=== PATIENT | male | born 1960 | race Caucasian/White ===

== ENCOUNTER → 2016-05-08 | Outpatient (CLI) | payer OTHER ==
[~2016-05-08] MED LIST: GASTROGRAFIN SOLUTION 30ML (Q9963) As Ordered ONE; ISOVUE-370 76% 100ML VIAL (Q9967) As Ordered ONE
--- NOTE | 2016-05-08 13:40 | REP ---
CT ABDOMEN AND PELVIS WITH AND WITHOUT IV CONTRAST: TECHNIQUE: Axial noncontrast images through the abdomen followed by contrast-enhanced images through the abdomen and pelvis using 100 mL Isovue 370 intravenous contrast material, with coronal and sagittal reformations. Visualized lung bases are clear. The liver, spleen, adrenals, pancreas, and kidneys are normal in appearance with no mass. There is no hydronephrosis. No renal or ureteral calculus is seen. There is no abdominal aorta aneurysm. There is no adenopathy. There is no free air or free fluid. There is no bowel wall thickening. The appendix is normal. There is no pelvic mass. Urinary bladder is not distended and not well evaluated. I see no anterior abdominal wall defect. There are diffuse degenerative changes of the spine. There appears to be spondylolysis of L5 with anterior grade 1 spondylolisthesis of L5 on S1. IMPRESSION: No evidence of abdominal or pelvis mass or adenopathy. Signed by Josiah Taylor MD 05/09/2016 06:27 P
== END ==
LOC: M RAD 11:09
PROVIDERS: ATTEND Surgery
DX: C44.99 Other specified malignant neoplasm of skin, unspecified (principal)

== ENCOUNTER → 2016-07-21 | Outpatient (CLI) | payer OTHER ==
--- NOTE | 2016-07-21 13:08 | REP ---
MR LUMBAR SPINE WITHOUT CONTRAST: HISTORY: Back pain. Decreased signal intensity on T2-weighted images is present in the L1-2, L2-3, and L5-S1 intervertebral discs. The discs are decreased in height. These findings are consistent with disc degeneration. There is no disc bulge or herniation at the L1-2 level. The L1 nerves exit the neural foramina without compression. A diffuse disc bulge is present at the L2-3 level. There is minimal compression of the thecal sac. There is hypertrophy of the posterior articulating facets. The L2 nerves exit the neural foramina without compression. A diffuse disc bulge is present at the L3-4 level. There is minimal compression of the thecal sac. There is hypertrophy of the posterior articulating facets. The L3 nerves exit the neural foramina without compression. A diffuse disc bulge is present at the L4-5 level. There is no thecal sac compression. There is hypertrophy of the posterior articulating facets. The L4 nerves exit the neural foramina without compression. A diffuse disc bulge is present at the L5-S1 level. There is no thecal sac compression. There is hypertrophy of the posterior articulating facets. There are 11 mm of grade 2 spondylolisthesis of L5 on S1. There appear to be L5 pars defects. There is compression of the L5 nerves in the neural foramina. The conus medullaris is normal in appearance terminating at the level of the L1-2 intervertebral disc. Increased signal intensity on T2-weighted images is present in the endplates of the L5 and S1 vertebral bodies. This represents degenerative change. IMPRESSION: 1. Diffuse disc bulges at the L2-3 and L3-4 levels with minimal thecal sac compression. 2. Diffuse disc bulge at the L4-5 level without thecal sac or nerve compression. 3. Diffuse disc bulge at the L5-S1 level without thecal sac compression. There is grade 2 spondylolisthesis of L5 on S1. There appear to be L5 pars defects. There is compression of the L5 nerves in the neural foramina. Signed by Steven Eddy MD 07/21/2016 01:18 P
== END ==
LOC: M PLARAD 11:37
PROVIDERS: ATTEND Family Medicine
DX: M51.36 Other intervertebral disc degeneration, lumbar region (principal); M43.16 Spondylolisthesis, lumbar region

== ENCOUNTER → 2017-02-25 | Outpatient (CLI) | payer OTHER ==
--- NOTE | 2017-02-26 07:12 | REP ---
CONTRAST ENHANCED CT OF THE ABDOMEN AND PELVIS: CLINICAL: History of carcinoma for re-evaluation and restaging. TECHNIQUE: Axial contrast enhanced images from the lung bases to the pubic symphysis using oral (per protocol) and 100 mL Isovue 370 intravenous contrast material with precontrast and delayed images of the abdomen as well as coronal and sagittal reformations. COMPARISON: 05/08/2016 FINDINGS: The visualized lung bases demonstrate a 13 mm soft tissue lesion with mild spiculation in the posterior left upper lobe inseparable from the fissure (image 7). The visualized portions of the heart and pericardium are normal. Liver, spleen, pancreas, gallbladder, bilateral adrenal glands and kidneys are normal. Lymph nodes in the daniel hepatis measure up to 3.8 x 2.2 cm. The enteric system is without obstruction or acute inflammatory process and a normal terminal ileum and appendix are identified in the right lower quadrant. The pelvis demonstrates normal bladder and prostate/seminal vesicles. The sigmoid colon is unremarkable. No pelvic fluid or ascites. No retroperitoneal adenopathy. Abdominal aorta and vasculature appears normal. Musculoskeletal structures demonstrate degenerative changes predominantly involving the lower lumbar spine and pelvis including chronic spondylolysis/spondylolisthesis at the L5-S1 level and bilateral sacroiliitis. Small left hydrocele suggested. IMPRESSION: 1. Lymph nodes in the adniel hepatis are otherwise nonspecific and measure up to 3.8 x 2.2 cm. 2. Chronic degenerative changes of the lumbosacral spine and pelvis. 3. 13 mm nodule in the left lung base. 4. No further acute abdominopelvic pathology appreciated. Signed by Nathanael Medellin MD 02/27/2017 08:58 A
--- NOTE | 2017-02-26 07:17 | REP ---
CONTRAST ENHANCED CT OF THE CHEST: CLINICAL: History of carcinoma. TECHNIQUE: Axial contrast enhanced images from the thoracic inlet to the upper abdomen using 100 mL Isovue 370 intravenous contrast material with coronal and sagittal reformations. COMPARISON: 01/23/2015. FINDINGS: There is a new 13 mm soft tissue lesion in the right upper lobe (image 43) as well as a similar 13 mm lesion in the left upper lobe inseparable from the major fissure (image 57). Few scattered smaller noncalcified nodules varying in size up to 2 mm are identified and nonspecific. Hilar lymph nodes measure up to approximately 12 mm short axis diameter. No further pulmonary parenchymal consolidation, effusion or pneumothorax. Tracheobronchial tree is patent. The mediastinum demonstrates normal thoracic aorta and heart/pericardium. Mild atherosclerotic changes of the aorta and coronary arteries noted. Surrounding musculoskeletal structures are intact and without focal osseous abnormality. Limited evaluation of the upper abdomen demonstrates normal bilateral adrenal glands. IMPRESSION: 1. Two 13 mm noncalcified nodular densities as described above along with nonspecific hilar lymph nodes. Findings represent new pathology compared to 2015. Metastatic disease cannot be excluded. PET/CT and/or biopsy may be considered. Signed by Nathanael Medellin MD 02/27/2017 08:58 A
--- NOTE | 2017-02-26 08:23 | REP ---
NONVASCULAR EXTREMITY ULTRASOUND: CLINICAL: History of carcinoma with palpable mass. TECHNIQUE: Real-time time moya scale and color evaluation using linear high frequency transducer. FINDINGS: Directed ultrasound examination at the point of maximal tenderness along the medial calf demonstrates moderate subcutaneous edema along with a somewhat ovoid hypoechoic focal area measuring 7 x 5 x 6 mm without vascularity and of uncertain etiology. IMPRESSION: Directed ultrasound examination demonstrates subcutaneous edema and small ovoid hypoechoic area which is nonspecific and avascular. Consider followup physical examination and repeat ultrasound if necessary. Signed by Nathanael Medellin MD 02/27/2017 08:00 A
== END ==
LOC: M RAD 08:52
PROVIDERS: ATTEND Internal Medicine Medical Oncology
DX: R22.41 Localized swelling, mass and lump, right lower limb (principal); Z85.828 Personal history of other malignant neoplasm of skin; M51.37 Other intervertebral disc degeneration, lumbosacral region; R91.8 Other nonspecific abnormal finding of lung field
CPT/HCPCS: 71260; 74178; 76882; Q9963; Q9967

== ENCOUNTER → 2017-04-14 | Outpatient (REF) | payer OTHER ==
[2017-04-14 17:37] LABS: INR 1.05; PARTIAL THROMBOPLASTIN TIME 28.5 SECONDS (26.8-37.9); PROTHROMBIN TIME 13.8 SECONDS (12.4-14.5)
== END ==
LOC: M LAB REF 16:44
DX: C44.709 Unspecified malignant neoplasm of skin of left lower limb, including hip (principal)

== ENCOUNTER → 2017-04-21 | Outpatient (CLI) | payer OTHER | LOC: M PLARAD 11:48 | DX: R91.1 Solitary pulmonary nodule (principal) | CPT/HCPCS: 78816 ==

== ENCOUNTER → 2017-04-22 | Outpatient (CLI) | payer OTHER ==
[~2017-04-22] MED LIST changes: -GASTROGRAFIN SOLUTION 30ML (Q9963) As Ordered ONE; -ISOVUE-370 76% 100ML VIAL (Q9967) As Ordered ONE; +LIDOCAINE 1% MDV 20ML VIAL As Ordered
== END ==
LOC: M RADPRO 07:46
DX: R91.8 Other nonspecific abnormal finding of lung field (principal); Z88.2 Allergy status to sulfonamides; Z79.82 Long term (current) use of aspirin; Z79.899 Other long term (current) drug therapy
CPT/HCPCS: 32405

== ENCOUNTER → 2017-05-28 | Outpatient (CLI) | payer OTHER | LOC: M RAD 09:45 | DX: R91.8 Other nonspecific abnormal finding of lung field (principal) | CPT/HCPCS: 71250 ==

== ENCOUNTER → 2017-06-19 | Outpatient (CLI) | payer OTHER | LOC: M SLEEP 19:31 | DX: G47.33 Obstructive sleep apnea (adult) (pediatric) (principal) | CPT/HCPCS: 95811 ==

== ENCOUNTER → 2017-07-31 | Outpatient (CLI) | payer MEDICARE, OTHER | LOC: M SLEEP 19:52 | DX: G47.33 Obstructive sleep apnea (adult) (pediatric) (principal) | CPT/HCPCS: 95811 ==

== ENCOUNTER → 2017-10-28 | Outpatient (CLI) | payer MEDICARE, OTHER | LOC: M SMT 10:35 | DX: R06.00 Dyspnea, unspecified (principal) | CPT/HCPCS: 71046 ==

== ENCOUNTER → 2017-11-25 | Outpatient (CLI) | payer MEDICARE, MEDICAID | LOC: M RAD 09:15 | DX: R91.8 Other nonspecific abnormal finding of lung field (principal) | CPT/HCPCS: 71250 ==

== ENCOUNTER → 2018-11-30 | Outpatient (CLI) | payer MEDICAID, MEDICARE ==
--- NOTE | 2018-11-30 11:11 | REP ---
CT CHEST WITHOUT CONTRAST: HISTORY: Other nonspecific abnormal finding of the lung field. The patient gives a history of porocarcinoma. Comparison CT studies are reviewed, the most recent of these is from November 25, 2017. The most remote is from January 23, 2015. CT FINDINGS: Today's CT study demonstrates numerous noncalcified pulmonary nodules scattered in the mid and lower lung gonzalez. The largest of the new nodules is in the left upper lobe measuring 11 mm. There are multiple tiny new nodules. A nodule previous identified in the right upper lobe has increased from 11-13 mm today. A lingular pleural-based nodule appears a little larger although its diameter has only increased from 13 to 14 mm. There is no evidence of hilar or mediastinal mass or adenopathy. No extrathoracic mass or adenopathy is seen. No bony destructive lesion is appreciated. There is mild vascular calcification. Fairly exuberant osteophyte formation is seen in the thoracic spine. IMPRESSION: There are numerous noncalcified pulmonary nodules visible today, increased in size and number since the prior study of November 25, 2017. Electronically Signed by Usman Torres MD 11/30/2018 01:03 P
== END ==
LOC: M RAD 08:31
PROVIDERS: ATTEND Internal Medicine Pulmonary Disease
DX: R91.8 Other nonspecific abnormal finding of lung field (principal)

== ENCOUNTER 2018-12-20 09:38 | Day surgery (SDC) | payer MEDICARE ==
[~2018-12-20] VITALS: Ht 172.7 cm; Wt 167.4 kg
[~2018-12-20 09:38] MED LIST changes: +ASPI81TA85 PO; +BUPIVACAINE HCL 0.25% 10 ML VIAL As Ordered ONE; +GLIM4TAB PO; -LIDOCAINE 1% MDV 20ML VIAL As Ordered; +LIDOCAINE 1% MDV 20ML VIAL SQ PRN; +LISI-542 PO; +LR 1,000 ML IV ONE; +METF500T13 PO; +MIDAZOLAM INJ 2 MG/2 ML VIAL (J2250) As Ordered ONE; +SIMV10TA2 PO; +fentaNYL 100 MCG/2 ML INJECTION (J3010) As Ordered ONE
[2018-12-20] MEDS ORDERED: PROPOFOL 200 MG/20 ML VIAL As Ordered ONE (09:58)
[2018-12-20] MEDS ORDERED: ROCURONIUM BROMIDE 50 MG/5 ML VIAL As Ordered ONE (09:59)
[2018-12-20] MEDS ORDERED: LIDOCAINE 2% INJ 100 MG/5 ML SDV (FOR ANES.) As Ordered ONE (09:59)
[2018-12-20] MEDS ORDERED: dexameTHASONE 4 MG/ML 1ML VIAL (J1100) As Ordered ONE (10:01)
[2018-12-20] MEDS ORDERED: ONDANSETRON 4MG/2ML VIAL (J2405) As Ordered ONE (10:01)
[2018-12-20] MEDS ORDERED: fentaNYL 100 MCG/2 ML INJECTION (J3010) As Ordered ONE (10:04)
[2018-12-20] MEDS ORDERED: MIDAZOLAM INJ 2 MG/2 ML VIAL (J2250) As Ordered ONE (10:04)
[2018-12-20] MEDS ORDERED: HumaLOG INSULIN (NovoLOG) PER UNIT As Ordered ONE (10:54)
[2018-12-20] MEDS ORDERED: CETACAINE SPRAY 5GM As Ordered ONE (11:04)
[2018-12-20] MEDS ORDERED: HumuLIN R (REGULAR) INSULIN (NovoLIN R) **100U/ML** PER UNIT SC ONE (11:30)
[2018-12-20] MEDS ORDERED: SUGAMMADEX SODIUM 500 MG/5 ML VIAL (BRIDION) As Ordered ONE (11:59)
[2018-12-20] MEDS ORDERED: HumaLOG INSULIN (NovoLOG) PER UNIT SC ONE (12:00)
[2018-12-20] MEDS ORDERED: PHENYLephrine HCL 500 MCG/5 ML (100MCG/ML) SYRINGE (J2370) As Ordered ONE (12:01)
[2018-12-20] MEDS ORDERED: ePHEDrine SULFATE 25 MG/5 ML(5MG/ML) SYRINGE As Ordered ONE (12:01)
[2018-12-20] MEDS ORDERED: DESFLURANE 240 ML INHALANT As Ordered ONE (12:36)
[2018-12-20] MEDS ORDERED: PERCOCET 5MG/325MG TAB PO PRN (13:00)
[2018-12-20] MEDS ORDERED: ONDANSETRON 4MG/2ML VIAL (J2405) IV PRN (13:00)
[2018-12-20] MEDS ORDERED: LR 1,000 ML IV SCH (13:00)
[2018-12-20] MEDS ORDERED: fentaNYL 100 MCG/2 ML INJECTION (J3010) IV PRN (13:00)
[2018-12-20] MEDS ORDERED: MEPERIDINE INJ 25 MG/ML VIAL (J2175) IV PRN (13:00)
[2018-12-20] MEDS ORDERED: METOCLOPRAMIDE INJ 10MG/2ML VIAL (J2765) IV PRN (13:00)
--- NOTE | 2018-12-20 13:00 | RO ---
DATE OF PROCEDURE: 12/20/2018 PREOPERATIVE DIAGNOSIS: Abnormal chest CT, multiple pulmonary nodules. POSTOPERATIVE DIAGNOSIS: Abnormal chest CT, multiple pulmonary nodules. FINDINGS: Of mucus in the airway. PROCEDURE: Bronchoscopy with electromagnetic navigation procedures. SURGEON: Rei Simon DO BALER OPERATOR: None SPECIMENS OBTAINED: 1. Cytoneedle brush left upper lobe. 2. Transbronchial biopsy left upper lobe. 3. Fine-needle aspiration (FNA) left upper lobe. ANESTHESIA: General. No observed complications. ESTIMATED BLOOD LOSS: Less than 5 mL, none replaced. DESCRIPTION OF PROCEDURE: After informed consent was reviewed with the patient in the preoperative area, he was brought back to operating room (OR) #8, which is a premapped room. General anesthesia was initiated with an 8.5 endotracheal tube. The case was then handed over to me. Time-out was performed with two patient identifiers identifying correct site, correct position, along with correlating the name and date of of the patient with the navigation CT. Cetacaine spray was then used to anesthetize the airway, provide lubrication for the one T190 scope which was then advanced into the airway. Trachea was midline. Lara was sharp. There was minimal amounts of mucus along the left lateral wall, was suctioned easily. Right and left mainstem bronchus was normal. Right bronchus (RB) 1 through 10 was normal without endobronchial lesions. Normal anatomic variation. Then, left bronchus (LB) 1 through 10 was inspected with normal endobronchial anatomy, minimal amounts of mucus. Bronchoscope was then retracted into the endotracheal tube. Automatic registration was then performed. Surprisingly, during the mapping process, it appeared that it was closer to the anterior left upper lobe anterior segment rather than the lingular segment, as one would suspect. I navigated through both of these areas and easily approached the lesion in the left upper lobe with a low anterior segment approach with in 1 cm. The navigatin was then correlated with fluoroscopy and the guide was removed. Biopsies were performed under fluoroscopy, first cytoneedle brush, then followed by transbronchial forceps biopsies, then followed by [facility]Cut FNA. After adequate sampling, airways were suctioned. Bronchoscope was removed, and the case was handed over to anesthesia. Patient was extubated and in recovery. There were no observed complications. TED
[2018-12-20 13:06] VITALS: BP 135/81
--- NOTE | 2018-12-20 14:08 | REP ---
REASON: Postoperative. COMPARISON: 10/28/2017 the latest prior. The technique utilized in obtaining the radiograph has magnified the cardiac silhouette and accentuated the interstitial markings. There is a curvilinear radiodensity seen which is vertically oriented in the right side of the neck possibly representing a internal jugular central venous catheter the tip of which appears to be in the right brachiocephalic vein region. This represents a change from the prior exam. The lungs are clear, essentially unchanged. The cardiomediastinal silhouette is unchanged. The osseous structures are stable and intact. IMPRESSION: No evidence of acute disease. Findings as described above. Electronically Signed by Galileo Reno DO 12/20/2018 02:39 P
== END 2018-12-20 13:28 | disposition home or self-care (01) ==
LOC: M SDC 09:38
PROVIDERS: ATTEND Internal Medicine Pulmonary Disease
DX: R91.8 Other nonspecific abnormal finding of lung field (principal); G47.33 Obstructive sleep apnea (adult) (pediatric); I10 Essential (primary) hypertension; E11.9 Type 2 diabetes mellitus without complications; E66.9 Obesity, unspecified; F17.220 Nicotine dependence, chewing tobacco, uncomplicated; Z79.84 Long term (current) use of oral hypoglycemic drugs; Z79.82 Long term (current) use of aspirin; Z79.899 Other long term (current) drug therapy
CPT/HCPCS: 31623; 31627; 31628; 31629; 71045; 76000; 88104; 88173; 88305; J1100; J2250; J2370; J2405; J3010

== ENCOUNTER → 2019-04-11 | Outpatient (CLI) | payer MEDICARE, MEDICAID ==
[~2019-04-11] MED LIST changes: -BUPIVACAINE HCL 0.25% 10 ML VIAL As Ordered ONE; +GLIM2TAB4 PO; -GLIM4TAB PO; +GLIM4TAB5 PO; +LASI20TA3 PO; -LIDOCAINE 1% MDV 20ML VIAL SQ PRN; -LR 1,000 ML IV ONE; +METF-839 PO; -MIDAZOLAM INJ 2 MG/2 ML VIAL (J2250) As Ordered ONE; -SIMV10TA2 PO; +SIMV10TA21 PO; -fentaNYL 100 MCG/2 ML INJECTION (J3010) As Ordered ONE
--- NOTE | 2019-04-12 08:48 | REP ---
BILATERAL ELBOW SERIES: EIGHT VIEWS. History: Polyarthralgia. Findings: RIGHT ELBOW : Four views of the right elbow demonstrate overall normal mineralization. There is moderate osteoarthritic spurring of the radiocapitellar and the ulnar trochlear articulations. There is evidence of some chondrocalcinosis. There is no significant joint effusion evident. No erosive changes seen. Impression: Moderate osteoarthritic spurring at the right elbow. Findings: LEFT ELBOW: Four views of the left elbow demonstrate a supracondylar exostosis projecting anteriorly and medially from the distal humerus. There is mild to moderate olecranon process spurring. Moderate coronoid and olecranon process articular spurring is noted as well. There is some calcification adjacent to the lateral epicondyle. No erosive changes seen. No evidence of joint effusion. Impression: Supracondylar spur. Moderate osteoarthritic spurring and tendon insertion site spurring on the olecranon. Electronically Signed by Usman Torres MD 04/12/2019 09:55 A
--- NOTE | 2019-04-12 08:49 | REP ---
Bilateral shoulder series: Six views. History: Polyarthralgia. Left shoulder findings: Three views of the left shoulder demonstrate osteoarthritic hypertrophy at the AC joint. The AC and glenohumeral articulations are normally aligned. Periarticular soft tissues are unremarkable. No erosive changes are seen. Impression: AC joint osteoarthritic changes. Right shoulder findings: There is narrowing and spurring and hypertrophy at the AC joint on the right. The glenohumeral and acromioclavicular joints are normally aligned. Minimal spurring is seen at the greater tuberosity of the right proximal humerus. No erosive changes are seen. Mineralization pattern is normal. Impression: AC joint osteoarthritis. Mild spurring at the greater tuberosity. Electronically Signed by Usman Torres MD 04/12/2019 09:55 A
--- NOTE | 2019-04-12 08:54 | REP ---
Bilateral knee series: 11 views. History: Polyarthralgia. Right knee findings: Five views of the right knee demonstrate mild osteoarthritic spurring and joint space narrowing in the medial tibiofemoral compartment of the knee. There is patellofemoral spurring superiorly and inferiorly. Some lateral spurring is seen. There is nonarticular spurring of the patella at the quadriceps tendon insertion and the patellar tendon insertion. No erosive changes seen. Impression: Medial and patellofemoral compartment osteoarthritis. Nonarticular spurring at the quadriceps tendon and patellar tendon insertions. Left knee findings: There is minimal joint space narrowing in the medial compartment. There is mild patellar articular spurring. There is quadriceps tendon insertion site spurring on the upper pole of the patella. [place]ena view on the left shows lateral arthritic patellar spurring as well. Impression: Patellofemoral and medial compartment osteoarthritic changes. Quadriceps tendon insertion site spurring suggest tendonitis. Electronically Signed by Usman Torres MD 04/12/2019 09:55 A
== END ==
LOC: M LAB 15:29
PROVIDERS: ATTEND Internal Medicine
DX: M19.021 Primary osteoarthritis, right elbow (principal); M19.022 Primary osteoarthritis, left elbow; M17.0 Bilateral primary osteoarthritis of knee; M19.011 Primary osteoarthritis, right shoulder; M19.012 Primary osteoarthritis, left shoulder; M25.50 Pain in unspecified joint
CPT/HCPCS: 36415; 73030; 73080; 73564; 80053; 81374; 82550; 84550; 85025; 85652; 86140; 86200; 86431; 86617; G0463

== ENCOUNTER → 2019-04-11 | Outpatient (REF) | payer MEDICARE, MEDICAID ==
[2019-04-11 17:41] LABS: BASO % 0.2 % (0.0-1.0); EOS # 0.2 10^3/uL (0.0-0.5); EOS % 2.3 % (0.0-3.0); HEMATOCRIT 47.2 % (42.0-52.0); HEMOGLOBIN 16.2 g/dl (13.5-17.5); LYMPH # 2.1 10^3/uL (1.5-5.0); LYMPH % 21.6 % (24.0-44.0); MEAN CORPUSCULAR HEMOGLOBIN 29.8 pg (27.0-33.0); MEAN CORPUSCULAR HGB CONC 34.3 g/dl (32.0-36.5); MEAN CORPUSCULAR VOLUME 86.9 fl (80.0-96.0); MONO # 0.7 10^3/uL (0.0-0.8); MONO % 7.6 % (0.0-5.0); NEUTROPHILS # 6.5 10^3/uL (1.5-8.5); NEUTROPHILS % 67.4 % (36.0-66.0); PLATELET COUNT, AUTOMATED 266 10^3/uL (150-450); RED BLOOD COUNT 5.43 10^6/uL (4.30-6.10); WHITE BLOOD COUNT 9.7 10^3/uL (4.0-10.0)
[2019-04-11 18:04] LABS: ALBUMIN 3.7 GM/DL (3.2-5.2); ALT/SGPT 20 U/L (12-78); BILIRUBIN,TOTAL 0.8 MG/DL (0.2-1.0); BLOOD UREA NITROGEN 13 MG/DL (7-18); C REACTIVE PROTEIN QUANTITATIV 1.37 MG/DL (0.00-0.30); CALCIUM LEVEL 9.4 MG/DL (8.5-10.1); CARBON DIOXIDE LEVEL 27 MEQ/L (21-32); CHLORIDE LEVEL 103 MEQ/L (98-107); CPK CREATINE PHOSPHOKINASE 47 U/L (39-308); CREATININE FOR GFR 0.85 MG/DL (0.70-1.30); GLOMERULAR FILTRATION RATE > 60.0 (>56); GLUCOSE, FASTING 178 MG/DL (70-100); POTASSIUM SERUM 3.9 MEQ/L (3.5-5.1); RHEUMATOID FACTOR QUANT < 10.0 IU/ML (<15.0); SODIUM LEVEL 138 MEQ/L (136-145); TOTAL PROTEIN 7.2 GM/DL (6.4-8.2); URIC ACID 5.6 MG/DL (3.5-7.2)
[2019-04-11 18:27] LABS: ERYTHROCYTE SEDIMENTATION RATE 9 mm/hr (0-20)
== END ==
LOC: M SFHCRHEU 15:08
PROVIDERS: ATTEND Internal Medicine
DX: M25.50 Pain in unspecified joint (principal); R25.2 Cramp and spasm

== ENCOUNTER → 2019-04-18 | Outpatient (CLI) | payer MEDICARE, MEDICAID ==
--- NOTE | 2019-04-20 08:35 | REP ---
CT CHEST WITHOUT IV CONTRAST: CT chest performed without IV contrast and compared to a prior study of 11/30/2018. Sagittal and coronal reconstruction images are performed. There are again several bilateral pulmonary nodules present. Most are subcentimeter in size. The largest on the right is in the upper lobe along the minor fissure and measures 1.2 cm in diameter. An oval nodule in the left lower lobe has a maximum diameter of 1.5 cm and is unchanged. Just inferior to that level in the left upper lobe, there is a somewhat irregular nodule 1.6 cm in maximum diameter with small central air density indicting slight cavitation. This is also unchanged. A previously noted nodule in the left upper lobe is no longer present and has resolved, previously seen on image 48. That nodule demonstrated irregular margins and measured 1 cm in diameter. No new nodules are seen. Thoracic aorta demonstrates mild atherosclerotic calcification without aneurysm. No mediastinal adenopathy is seen. The heart is not enlarged. There is no pleural or pericardial effusion. Incidental note is made of mild bilateral gynecomastia. There are moderate degenerative changes of the spine. IMPRESSION: Multiple bilateral pulmonary nodules, for the most part appear stable. One of the nodular opacities on the prior study of 11/30/2018 is no longer visualized as discussed above. No new nodules are seen. Electronically Signed by Josiah Taylor MD 04/20/2019 10:46 P
== END ==
LOC: M RAD 13:04
PROVIDERS: ATTEND Internal Medicine Pulmonary Disease
DX: R91.8 Other nonspecific abnormal finding of lung field (principal)

== ENCOUNTER → 2019-08-18 | Outpatient (CLI) | payer MEDICARE, MEDICAID ==
--- NOTE | 2019-08-18 14:16 | REP ---
CT CHEST WITHOUT IV CONTRAST: CT chest performed without IV contrast and compared to a prior study of 04/18/2019 and other prior studies dating back to 11/25/2017. Once again, there are multiple bilateral pulmonary nodules present. Most are subcentimeter in diameter. In the right lung a dominant nodule is seen in the right upper lobe along the superior aspect of the minor fissure. It measures approximately 1.2 cm in diameter. This is essentially unchanged compared to the prior study of 04/18/2019. It has increased in size approximately 1-2 millimeters since the 2018 exam. On the left, there is a stable old nodule in the superior segment of the left lower lobe. There is a nodule in the left upper lobe along the superior aspect of the fissure with a tiny central area of cavitation. It measures about 1.5 cm in diameter and appears unchanged. Since the recent exam of 04/18/2019. No new nodule is seen bilaterally. The heart is not enlarged. There is no pleural or pericardial effusion. There is no significant mediastinal or axillary adenopathy. Thoracic aorta is normal in caliber. There are degenerative changes of the spine. IMPRESSION: Multiple stable bilateral pulmonary nodules compared to 04/18/2019 as discussed in detail above. Electronically Signed by Josiah Taylor MD 08/18/2019 05:04 P
== END ==
LOC: M RAD 12:28
PROVIDERS: ATTEND Physician Assistant
DX: R91.8 Other nonspecific abnormal finding of lung field (principal)

== ENCOUNTER → 2020-02-28 | Outpatient (CLI) | payer MEDICARE, MEDICAID ==
[~2020-02-28] MED LIST changes: -ASPI81TA85 PO; +ASPI81TA86 PO
--- NOTE | 2020-02-28 10:08 | REP ---
INDICATION: OTHER NON SPECIFIC ABNORMAL FINDING OF LUNG FIELD. COMPARISON: Chest CT dated 08/18/[address] dated 11/30/2018. TECHNIQUE: Chest CT without IV contrast. FINDINGS: The known right upper lobe lung nodule today measures 15 mm. This was 12 mm on 08/18/2019. The known lung nodule posteriorly inferiorly in the left upper lobe today measures 14 mm. It measured 15 mm on 08/18/2019. The small cavitation with this and this nodule is obscured by motion artifact on the current study. The known nodule in the superior segment of the left lower lobe measures 16 mm. It measured 16 mm on 08/18/2019. On 11/30/2018 there was an additional nodule in the left upper lobe. This nodule is no longer identified on the study today and was not identified on 08/18/2019. There are other stable small nodules scattered throughout the lung gonzalez bilaterally, essentially unchanged. There are no acute infiltrates or pleural effusions. There is no mediastinal or axillary lymph node enlargement. The study is insensitive for hilar are lymph node enlargement in the absence of IV contrast. The thoracic aorta is unremarkable. Cardiac size is normal. No pericardial effusion. The visualized upper abdominal contents are unremarkable. There is no adrenal nodule. IMPRESSION: Lung nodules as described. <Electronically signed by Josiah Murray > 02/28/20 [id number]
== END ==
LOC: M RAD 07:30
PROVIDERS: ATTEND Internal Medicine Pulmonary Disease
DX: R91.8 Other nonspecific abnormal finding of lung field (principal)

== ENCOUNTER → 2020-07-25 | Outpatient (REF) | payer MEDICARE, MEDICAID ==
[~2020-07-25] MED LIST changes: -LISI-542 PO; +LISI-898 PO
== END ==
LOC: M LAB REF 16:31
PROVIDERS: ATTEND Physician Assistant
DX: L57.0 Actinic keratosis (principal)

== ENCOUNTER → 2020-10-12 | Outpatient (CLI) | payer MEDICARE, MEDICAID ==
[~2020-10-12] MED LIST changes: +BETA5OI; +GASTROGRAFIN SOLUTION 30ML (Q9963) As Ordered ONE; +GLIM4TAB5; +ISOVUE-370 76% 100ML VIAL As Ordered ONE; +JARD1TAB; +NAPR-885
--- NOTE | 2020-10-12 16:26 | REP ---
INDICATION: LT GROIN SWELLING, LUMP. COMPARISON: CT 02/25/2017. TECHNIQUE: Oral Gastrografin mixture per our bowel contrast protocol and bolus 100 mL Isovue 370 scanning through the abdomen pelvis with coronal and sagittal reconstructions. FINDINGS: CT abdomen: Lung bases are clear. The heart is not enlarged. There is no pericardial thickening or effusion. See no hiatal hernia. There is no gross hepatomegaly, focal hepatic mass or intrahepatic biliary dilatation. The left lobe is mildly prominent but hepatic margins are smooth. No gross splenomegaly or focal splenic lesion. Gallbladder shows no calcified stone or mass. Pancreas shows no mass, ductal dilatation, peripancreatic adenopathy or fluid collection. Abdominal aorta is without aneurysm or dissection. No periaortic, other retroperitoneal or mesenteric pathologic sized lymphadenopathy. Small bowel loops with oral contrast or fluid but no dilatation or air-fluid levels within. Appendix is normal. Stool and gas scattered throughout the colon within the abdomen but no colitis or diverticulitis. Lung window review of all CT slices shows no perforation or free air. There is grade 1-2 anterolisthesis of L5 on S1 with bilateral spondylolysis. Disc space narrowing significant at L5-S1. The other disc space heights and vertebral body heights grossly intact. No acute compression deformity or destructive lesion. Visualized ribs are grossly intact. CT pelvis: Sacrum, SI joints pelvis and hips do show some degenerative changes without destructive lesion or fracture. The bladder is partially filled without a mass, stone or wall thickening. There is no hydroureter or ureteral stone on either side. There is no ventral or inguinal hernia nor pathologic sized inguinal adenopathy. Few pelvic phleboliths and calcifications in the prostate noted. There is a large left-sided hydrocele. No bowel herniation. The right inguinal canal has some omental fat within but no bowel herniation. Trace right hydrocele IMPRESSION: 1. There is a prominent left scrotal hydrocele with omental fat in the inguinal canal but no bowel herniation on the left side. There is also omental fat without bowel herniation on the right side and only trace fluid about the testis. 2. Bilateral L5 spondylolysis with grade 1-2 spondylolisthesis of L5 on S1, stable. Degenerative disc and facet changes at this level and much less at other levels. No compression fracture or acute bony finding. 3. The upper abdomen shows some prominence of the left hepatic lobe but no lobulated contour of the liver, biliary dilatation, heterogeneity or adjacent ascites. Spleen unremarkable. The gallbladder, pancreas, adrenal glands, kidneys and bladder all unremarkable. 4. Colon, small bowel loops and appendix normal. No hiatal hernia. <Electronically signed by Johan Sousa > 10/12/20 [id number]
== END ==
LOC: M RAD 14:10
PROVIDERS: ATTEND Internal Medicine Medical Oncology
DX: R19.09 Other intra-abdominal and pelvic swelling, mass and lump (principal)
CPT/HCPCS: 74177; Q9963; Q9967

== ENCOUNTER → 2021-06-24 | Outpatient (REF) | payer MEDICARE, MEDICAID ==
[~2021-06-24] MED LIST changes: -GASTROGRAFIN SOLUTION 30ML (Q9963) As Ordered ONE; -ISOVUE-370 76% 100ML VIAL As Ordered ONE; -LISI-898 PO; +LISI5TAB11 PO
== END ==
LOC: M SFHCDERM 18:30
PROVIDERS: ATTEND Nurse Practitioner Family
DX: L57.0 Actinic keratosis (principal)

== ENCOUNTER → 2021-09-27 | Outpatient (REF) | payer MEDICARE, MEDICAID | LOC: M SFHCDERM 16:33 | PROVIDERS: ATTEND Nurse Practitioner Family | DX: L57.0 Actinic keratosis (principal) ==

== ENCOUNTER → 2021-11-06 | Outpatient (CLI) | payer MEDICARE, MEDICAID ==
[~2021-11-06] MED LIST changes: +ASPI81CH33 PO; +LISI10TA22 PO
== END ==
LOC: M RAD 16:12
PROVIDERS: ATTEND Internal Medicine Hematology & Oncology
DX: M25.552 Pain in left hip (principal)

== ENCOUNTER → 2022-04-07 | Outpatient (CLI) | payer MEDICARE, MEDICAID | LOC: M PLAIMG 11:22 | PROVIDERS: ATTEND Internal Medicine Pulmonary Disease | DX: R91.8 Other nonspecific abnormal finding of lung field (principal) ==

== ENCOUNTER → 2022-05-29 | Outpatient (CLI) | payer MEDICARE, MEDICAID ==
[~2022-05-29] MED LIST changes: +ISOVUE-370 76% 100ML VIAL As Ordered ONE; +SEMA14TA2
== END ==
LOC: M RAD 13:16
PROVIDERS: ATTEND Internal Medicine Medical Oncology
DX: C44.90 Unspecified malignant neoplasm of skin, unspecified (principal); N43.3 Hydrocele, unspecified; M16.12 Unilateral primary osteoarthritis, left hip; K76.0 Fatty (change of) liver, not elsewhere classified; R16.1 Splenomegaly, not elsewhere classified; R91.1 Solitary pulmonary nodule
CPT/HCPCS: 73701; 74177; Q9967

== ENCOUNTER → 2022-09-01 | Outpatient (REF) | payer MEDICARE, MEDICAID ==
[~2022-09-01] MED LIST changes: -ISOVUE-370 76% 100ML VIAL As Ordered ONE
== END ==
LOC: M SFHCDERM 17:43 → M SFHCWAGY 17:43
PROVIDERS: ATTEND Nurse Practitioner Family
DX: D23.61 Other benign neoplasm of skin of right upper limb, including shoulder (principal); L85.8 Other specified epidermal thickening

== ENCOUNTER → 2023-01-13 | Outpatient (REF) | payer MEDICARE, MEDICAID ==
[~2023-01-13] MED LIST changes: +FURO40TA2 PO; -GLIM4TAB5; -JARD1TAB; +JARD1TAB PO; -NAPR-885; +NAPR-885 PO; -SEMA14TA2; +SEMA14TA2 PO; +VITAD400CA FT
== END ==
LOC: M SFHCDERM 14:11
PROVIDERS: ATTEND Nurse Practitioner Family
DX: D49.2 Neoplasm of unspecified behavior of bone, soft tissue, and skin (principal)

== ENCOUNTER → 2024-11-09 | Outpatient (CLI) | payer MEDICARE, MEDICAID ==
[~2024-11-09] MED LIST changes: +SEMA2PEN
== END ==
LOC: M SLEEP 20:00
PROVIDERS: ATTEND Internal Medicine Pulmonary Disease
DX: G47.33 Obstructive sleep apnea (adult) (pediatric) (principal)